=== PATIENT | male | born 1960 | race Caucasian/White ===

== ENCOUNTER → 2022-02-23 | Outpatient (CLI) | payer OTHER ==
--- NOTE | 2022-02-23 16:25 | XR ---
KUB HISTORY: Hematuria, frequency Frontal KUB and 2 images Lung bases are clear. There is no evident bowel obstruction or pneumoperitoneum. Bone mineralization is normal. No pathologic calcification is evident. Probable vascular calcifications are present withi n the pelvis. IMPRESSION: No significant abnormality is evident.
== END | disposition home or self-care (01) ==
LOC: RADXRYALE 15:23
PROVIDERS: ATTEND Family Medicine
DX: R35.0 Frequency of micturition (principal); R31.0 Gross hematuria
CPT/HCPCS: 74018

== ENCOUNTER → 2022-03-13 | Outpatient (CLI) | payer OTHER ==
--- NOTE | 2022-03-13 15:56 | US ---
EXAMINATION TYPE: US kidneys/renal and bladder DATE OF EXAM: 03/13/2022 COMPARISON: NONE CLINICAL HISTORY: R31.0 Gross hematuria, R35.0 Frequency of micturition. gross hematuria that has sto p with medication EXAM MEASUREMENTS: Right Kidney: 11.0 x 4.7 x 5.6 cm Left Kidney: 12.3 x 4.1 x 6.4 cm Right Kidney: No hydronephrosis or masses seen Left Kidney: No hydronephrosis or masses seen Bladder: wnl Bilateral Jets seen: right only There is no evidence for hydronephrosis at this point in time. No nephrolithiasis is seen. No chad s are identified. The urinary bladder shows a irregularity at the inferior margin of the urinary shannon dder possibly related to prostatic enlargement but indeterminate. Bilateral ureteral jets are seen. IMPRESSION: No evident renal mass or stone, no hydronephrosis. Possible prostatic hypertrophy, correlate.
== END | disposition home or self-care (01) ==
LOC: RADUSWWP 14:46
PROVIDERS: ATTEND Family Medicine
DX: R31.0 Gross hematuria (principal); R35.0 Frequency of micturition
CPT/HCPCS: 76770